=== PATIENT | male | born 1950 | race Caucasian/White ===

== ENCOUNTER 2020-04-07 10:51 | Emergency (ER) | payer OTHER, MEDICARE ==
[~2020-04-07] VITALS: Ht 185.4 cm; Wt 89.4 kg
[2020-04-07] MEDS ORDERED: ASA81BEC PO (10:56)
[2020-04-07] MEDS ORDERED: PRINIVIL20 M1 PO (10:56)
[2020-04-07 11:09] LABS: ABSOLUTE BASOPHILS 0.1 thou/uL (0.0-0.2); ABSOLUTE EOSINOPHILS 0.2 thou/uL (0.0-0.7); ABSOLUTE LYMPHOCYTES 2.1 thou/uL (0.8-5.3); ABSOLUTE MONOCYTES 0.4 thou/uL (0.0-1.2); ABSOLUTE NEUTROPHILS 4.3 thou/uL (1.6-8.1); EOSINOPHILS 2.8 %; HEMATOCRIT 40.9 % (42.0-52.0); HEMOGLOBIN 13.8 gm/dL (14.0-18.0); LYMPHOCYTES 30.1 %; MCH 30.6 pg (26.0-34.0); MCHC 33.8 g/dL (28.0-37.0); MCV 90.4 fL (80.0-100.0); MONOCYTES 5.7 %; MPV 7.5 fl. (7.2-11.1); NUCLEATED RBCS 0 /100WBC; PLATELET COUNT* 325 thou/uL (150-400); POLYS 60.4 %; RBC 4.53 mil/uL (4.50-6.00); RDW-CV 14.2 % (10.5-14.5); WBC 7.1 thou/uL (4.0-11.0)
[2020-04-07 11:16] LABS: CREATININE 1.3 mg/dL (0.6-1.3); POTASSIUM 3.7 mmol/L (3.5-5.1)
[2020-04-07 11:20] LABS: ALBUMIN 3.9 g/dL (3.4-5.0); TOTAL BILIRUBIN 0.7 mg/dL (<0.1-1.0); TOTAL PROTEIN 7.2 g/dL (6.4-8.2)
[2020-04-07 11:22] LABS: APTT 22.6 Seconds (25.0-31.3); INR 1.1
[2020-04-07 11:25] LABS: CALCIUM 8.8 mg/dL (8.5-10.1)
[2020-04-07 13:29] VITALS: BP 118/70
--- NOTE | 2020-04-07 15:26 | EKG ---
[place] [address] ELECTROCARDIOGRAM REPORT Name: ELLIS GONZALEZ Room: [facility]#: [id number] Admission: 04/07/20 Attend Phys: Discharge: 04/07/20 Date of : 54 Date of Service: 04/07/20 1106 Report #: [id number] THIS REPORT FOR: //name// [facility] ED Test Date: 2020-04-07 Test Time: 11:06:58 Pat Name: ELLIS GONZALEZ Department: Room: Gender: Fashion Consultant Selling: [facility] : 1950 Requested By: Holger Govea Order Number: [id number] MD: Tin Weber Measurements Intervals [place] Rate: 58 P: 37 CT: 189 QRS: 15 QRSD: 100 T: 27 QT: 438 QTc: 431 Interpretive Statements Sinus rhythm No previous ECG available for comparison Electronically Signed On 04-07-2020 15:26:46 CDT by Tin Weber [email or web address] <ELECTRONICALLY SIGNED> By: Tin Weber MD, [facility] 04/07/20 1526 D: 07/1105 05 Tin Weber MD, FACC /EPI
== END 2020-04-07 13:30 | disposition home or self-care (01) ==
LOC: M.ERS 10:51
PROVIDERS: Family Medicine
DX: R55 Syncope and collapse (principal)